=== PATIENT | female | born 1985 | race Caucasian/White ===

== ENCOUNTER 2018-05-16 16:45 | Emergency (ER) | payer SELFPAY ==
--- NOTE | 2018-05-16 19:17 | RAD ---
LEFT FOOT RADIOGRAPHS THREE VIEWS: 05/16/2018 PROVIDED CLINICAL HISTORY: Left foot pain, status post injury. FINDINGS: There is no evidence for fracture or other acute osseous abnormality. If there is persistent clinical concern, conservative management and follow-up imaging are advised. IMPRESSION: As above. POS: [facility]
== END 2018-05-16 18:25 | disposition home or self-care (01) ==
LOC: SCSER 16:45
DX: S90.32XA Contusion of left foot, initial encounter (principal); F17.210 Nicotine dependence, cigarettes, uncomplicated; W01.10XA Fall on same level from slipping, tripping and stumbling with subsequent striking against unspecified object, initial encounter; Y93.39 Activity, other involving climbing, rappelling and jumping off